=== PATIENT | male | born 1975 | race Caucasian/White ===

== ENCOUNTER 2019-08-25 06:45 | Emergency (ER) | payer MEDICAID ==
[~2019-08-25] VITALS: Ht 175.3 cm; Wt 99.8 kg
[2019-08-25 06:51] VITALS: Ht 175.3 cm; Wt 99.8 kg
[2019-08-25 07:51] VITALS: BP 131/78
== END 2019-08-25 07:51 | disposition home or self-care (01) ==
LOC: ED 06:45
DX: S46.911A Strain of unspecified muscle, fascia and tendon at shoulder and upper arm level, right arm, initial encounter (principal); G89.29 Other chronic pain; X50.9XXA Other and unspecified overexertion or strenuous movements or postures, initial encounter; Y93.89 Activity, other specified; Y92.89 Other specified places as the place of occurrence of the external cause; Y99.8 Other external cause status
CPT/HCPCS: J1885

== ENCOUNTER 2020-04-29 10:23 | Emergency (ER) | payer MEDICAID ==
[~2020-04-29] VITALS: Ht 172.7 cm; Wt 102.5 kg
[2020-04-29 10:44] VITALS: Ht 172.7 cm; Wt 102.5 kg
[2020-04-29 11:41] VITALS: BP 152/88
== END 2020-04-29 11:41 | disposition home or self-care (01) ==
LOC: ED 10:23
DX: S46.911A Strain of unspecified muscle, fascia and tendon at shoulder and upper arm level, right arm, initial encounter (principal); X58.XXXA Exposure to other specified factors, initial encounter; Y93.89 Activity, other specified; Y92.89 Other specified places as the place of occurrence of the external cause; Y99.8 Other external cause status